=== PATIENT | male | born 1960 | race Caucasian/White ===

== ENCOUNTER 2016-09-06 18:34 | Emergency (ER) | payer OTHER, BC ==
[2016-09-06] MEDS ORDERED: OXYCODONE-ACETAMINOPHEN 5-325 MG TABLET PO ONE (18:47)
--- NOTE | 2016-09-06 18:47 | ER Document Report ---
ED Medical Screen (RME) - General Chief Complaint: Fall Stated Complaint: POSSIBLE ARM/SHOULDER INJURY Time seen by provider: 18:44 Mode of Arrival: Ambulatory Information source: Patient Notes: 56 yo male presents to ed for pain in right shoulder after falling landing on the shoulder. TRAVEL OUTSIDE OF THE [place] IN LAST 30 DAYS: No - HPI Onset: This evening - 1700 Onset/Duration: Sudden Quality of pain: Sharp, Throbbing Severity: Moderate Pain Level: 4 Associated Symptoms: Other - right shoulder pain Exacerbated by: Movement Relieved by: Denies Similar symptoms previously: No Recently seen / treated by doctor: No - Related Data Smoking: Non-smoker Frequency of alcohol use: None Drug Abuse: None Allergies/Adverse Reactions: No Known Allergies Allergy (Verified 09/06/16 18:44) Past Medical History - Past Medical History Cardiac Medical History: Reports: Hx Hypercholesterolemia, Hx Hypertension Pulmonary Medical History: Reports: Hx Asthma - as a child, Hx Sleep Apnea Renal/ Medical History: Reports: Hx Kidney Stones GI Medical History: Reports: Hx Diverticulitis Musculoskeltal Medical History: Reports Hx Arthritis, Reports Hx Fibromyalgia Psychiatric Medical History: Denies: Hx Depression Past Surgical History: Reports: Hx Adenoidectomy, Hx Appendectomy, Hx Tonsillectomy - Immunizations Immunizations up to date: Yes Hx Diphtheria, Pertussis, Tetanus Vaccination: Yes
--- NOTE | 2016-09-06 19:23 | ER Document Report ---
ED Extremity Problem, Upper - General Chief Complaint: Shoulder Pain Stated Complaint: POSSIBLE ARM/SHOULDER INJURY Time seen by provider: 19:18 Mode of Arrival: Ambulatory Notes: This is a 56-year-old male with a history of hypertension, fibromyalgia, sleep apnea, arthritis, and carpal tunnel in the right hand states that at 1700 this afternoon he tripped over an alignment machine while at work. He immediately stretch out his hand but could not brace his fall and fell on his right side. Denies hitting his head loss of consciousness nausea vomiting. He does not take any blood thinners. Denies wrist and elbow pain bilaterally. TRAVEL OUTSIDE OF THE [place] IN LAST 30 DAYS: No - Related Data Allergies/Adverse Reactions: No Known Allergies Allergy (Verified 09/06/16 18:44) Past Medical History - General Information source: Patient - Social History Smoking Status: Never Smoker Chew tobacco use (# tins/day): No Frequency of alcohol use: None Drug Abuse: None Family History: Reviewed & Not Pertinent Patient has suicidal ideation: No Patient has homicidal ideation: No - Past Medical History Cardiac Medical History: Reports: Hx Hypercholesterolemia, Hx Hypertension Pulmonary Medical History: Reports: Hx Asthma - as a child, Hx Sleep Apnea Renal/ Medical History: Reports: Hx Kidney Stones GI Medical History: Reports: Hx Diverticulitis Musculoskeltal Medical History: Reports Hx Arthritis, Reports Hx Fibromyalgia Psychiatric Medical History: Denies: Hx Depression Past Surgical History: Reports: Hx Adenoidectomy, Hx Appendectomy, Hx Tonsillectomy - Immunizations Immunizations up to date: Yes Hx Diphtheria, Pertussis, Tetanus Vaccination: Yes Review of Systems - Review of Systems Constitutional: denies: Chills, Fever EENT: No symptoms reported Cardiovascular: denies: Chest pain Respiratory: denies: Cough, Hurts to breathe Gastrointestinal: denies: Abdominal pain Genitourinary: No symptoms reported Male Genitourinary: No symptoms reported Musculoskeletal: denies: Joint pain Skin: No symptoms reported Hematologic/Lymphatic: No symptoms reported Neurological/Psychological: No symptoms reported Physical Exam - Vital signs Vitals: Temp Pulse Resp BP Pulse Ox 98.3 F 101 H 20 152/97 H 96 09/06/16 18:45 09/06/16 18:45 09/06/16 18:45 09/06/16 18:45 01/06/17 18:45 - General General appearance: Appears well In distress: None - HEENT Head: Normocephalic, Atraumatic Eyes: Normal Conjunctiva: Normal - Respiratory Respiratory status: No respiratory distress. No: Tachypnea Breath sounds: Normal. No: Rales, Rhonchi, Stridor, Wheezing - Cardiovascular Rhythm: Regular Heart sounds: Normal auscultation - Abdominal Inspection: Normal Distension: No distension Bowel sounds: Normal Tenderness: No: Tender - Extremities General upper extremity: Normal inspection - No gross deformity to the right shoulder. Admits to pain of the posterior and anterior mid right shoulder to point palpation. Denies radiation of pain. Unable to move the right shoulder in any direction due to pain significant guarding. Patient is able to extend elbow and move the right wrist in all directions. No snuffbox tenderness. Peripheral pulses +2 bilaterally radial. Capillary refill normal bilaterally. Normal sensation in all digits bilaterally. Normal sensation to palmar and dorsal side of hand bilaterally. Leadership Development Consultant strength in both hands are strong. Patient had normal sensation to upper and lower arm bilaterally., Nontender, Normal strength, Normal temperature General lower extremity: Normal inspection, Nontender, Normal strength, Normal temperature Shoulder: Normal Elbow: Normal Forearm: Normal Wrist: Normal Hand: Normal - Neurological Cognition: Normal. No: Confused Cranial nerves: Normal - Cranial nerves I through XII are intact. - Psychological Associated symptoms: Normal affect, Normal mood - Skin Skin Temperature: Warm Skin Moisture: Dry Skin Color: Normal Course - Re-evaluation Re-evalutation: 09/06/16 20:00 Radiographic images were shared with the patient. He was given multiple opportunities to ask questions. Patient stated that he had pain medication at home. He stated that he would follow up with orthopedist in the morning. He stated that he understood the discharge instructions. - Vital Signs Vital signs: Temp Pulse Resp BP Pulse Ox 97.5 F 99 20 145/83 H 95 09/06/16 20:05 09/06/16 20:05 09/06/16 20:05 09/06/16 20:05 09/06/16 20:05 Discharge - Discharge Clinical Impression: Right shoulder pain Qualifiers: Chronicity: acute Qualified Code(s): M25.511 - Pain in right shoulder Condition: Stable Disposition: HOME, SELF-CARE Additional Instructions: Return to the emergency department if symptoms worsen such as swollen shoulder, redness, drainage, or loss of sensation,etc. Follow-up with primary care physician and orthopedist as soon as possible. Sling to be Used You are to use a sling. This is to rest the area, and to prevent it from hanging downward. Use this sling for at least 48 hours (or longer if so instructed by the doctor). Some types of splints will break if not supported by the sling, so the sling must be used as long as the splint. Ice can be placed inside the sling over the injured area. Once you remove the sling, you should not encounter pain when you use the arm and hand. If you do feel pain beneath the cast or splint, you must continue use of the sling. Shoulder Injury You have injured your shoulder. This usually results from stretching or tearing of the tendons during trauma. Time and protection are required in order to heal properly. Many injuries are quite disabling, and should be taken seriously. Initial treatment includes cold packs and a sling to rest the shoulder. The physician has assessed the seriousness of your injury, and has outlined a treatment plan. Understand that this treatment may change, depending on how you progress. If a re-examination was recommended, it is important that you follow up as instructed. Some shoulder injuries (such as partial tear of the rotator cuff) are only suspected after you've failed to improve. Call us if there's severe pain, numbness, or loss of function. Referrals: [facility] [Provider Group] - Follow up as needed
--- NOTE | 2016-09-06 19:35 | ER Document Report ---
Doctor's Note Notes: 09/06/16 19:35 Patient independent seen and examined by myself. He reports a fall on outstretched right upper extremity has no complaints now except for pain which localizes to the area of the anterior humeral head on the right lateral portion of the clavicle. Patient is in a sling applied in triage. Wrist elbow forearm are nontender. Humerus is nontender to palpation. Pain localizes to the right acromioclavicular joint but no bruising or swelling is identified in this area. No bony deformities palpated. Radial median and ulnar nerve function right hand is intact. X-rays show no fracture dislocation
[2016-09-06 20:06] VITALS: BP 145/83
== END 2016-09-06 20:10 | disposition home or self-care (01) ==
LOC: ER 18:34
DX: M25.511 Pain in right shoulder (principal); I10 Essential (primary) hypertension; W01.0XXA Fall on same level from slipping, tripping and stumbling without subsequent striking against object, initial encounter; Y99.0 Civilian activity done for income or pay
CPT/HCPCS: 99283

== ENCOUNTER 2016-11-24 12:02 | Emergency (ER) | payer SELFPAY ==
[2016-11-24] MEDS ORDERED: OXYCODONE-ACETAMINOPHEN 5-325 MG TABLET PO ONE (12:06)
[2016-11-24] MEDS ORDERED: ONDANSETRON 4 MG TAB.RAPDIS PO ONE (12:06)
--- NOTE | 2016-11-24 12:10 | ER Document Report ---
ED Medical Screen (RME) - General Stated Complaint: LEFT SIDE FLANK PAIN Mode of Arrival: Ambulatory Information source: Patient Notes: Pt presents to the ED with c/o left sided low back pain for the last couple days.. Denies f/n/v, denies urinary/bowel incontinence,retention. Denies numbness tingling. Patient reports history of diverticulitis kidney stones. Patient also reports history of fibromyalgia. Patient is under pain management took 10 mg of Percocet before arrival. Reports no relief from pain. 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 I have greeted and performed a rapid initial assessment of this patient. A comprehensive ED assessment and evaluation of the patient, analysis of test results and completion of the medical decision making process will be conducted by additional ED providers. TRAVEL OUTSIDE OF THE [place] IN LAST 30 DAYS: No - Related Data Allergies/Adverse Reactions: No Known Allergies Allergy (Verified 11/24/16 12:07) Past Medical History - Past Medical History Cardiac Medical History: Reports: Hx Hypercholesterolemia, Hx Hypertension Pulmonary Medical History: Reports: Hx Asthma - as a child, Hx Sleep Apnea Renal/ Medical History: Reports: Hx Kidney Stones GI Medical History: Reports: Hx Diverticulitis Musculoskeltal Medical History: Reports Hx Arthritis, Reports Hx Fibromyalgia Psychiatric Medical History: Denies: Hx Depression Past Surgical History: Reports: Hx Adenoidectomy, Hx Appendectomy, Hx Tonsillectomy - Immunizations Immunizations up to date: Yes Hx Diphtheria, Pertussis, Tetanus Vaccination: Yes
[2016-11-24 12:34] LABS: ABSOLUTE BASOPHILS # (AUTO) 0.1 10^3/uL (0.0-0.2); ABSOLUTE EOSINOPHILS # (AUTO) 0.3 10^3/uL (0.0-0.6); ABSOLUTE LYMPHOCYTES (AUTO) 2.2 10^3/uL (0.5-4.7); ABSOLUTE MONOCYTES (AUTO) 0.5 10^3/uL (0.1-1.4); BASOPHILS % (AUTO) 0.8 % (0-2); EOSINOPHILS % (AUTO) 3.3 % (0-6); HEMATOCRIT 42.1 % (37.9-51.0); HEMOGLOBIN 14.4 g/dL (13.5-17.0); HGB HCT DIFFERENCE 1.1; LYMPHOCYTES % (AUTO) 24.6 % (13-45); MEAN CORPUSCULAR HGB CONC 34.2 g/dL (32.0-36.0); MEAN CORPUSCULAR VOLUME 88 fl (80-97); MONOCYTES % (AUTO) 5.8 % (3-13); RED BLOOD COUNT 4.79 10^6/uL (4.35-5.55); RED CELL DISTRIBUTION WIDTH 12.6 % (11.5-14.0); SEGMENTED NEUTROPHILS % (AUTO) 65.5 % (42-78); WHITE BLOOD COUNT 9.1 10^3/uL (4.0-10.5)
[2016-11-24 12:44] LABS: APPEARANCE,URINE SLIGHTLY-CLOUDY; BILIRUBIN,URINE NEGATIVE (NEGATIVE); GLUCOSE, URINE NEGATIVE (NEGATIVE); KETONES,URINE NEGATIVE (NEGATIVE); LEUKOCYTE ESTERASE,URINE SMALL (NEGATIVE); NITRITE,URINE NEGATIVE (NEGATIVE); PROTEIN,URINE NEGATIVE (NEGATIVE); URINE SPECIFIC GRAVITY 1.016; UROBILINOGEN,URINE NEGATIVE mg/dL (<2.0)
[2016-11-24 12:47] LABS: ALANINE AMINOTRANSFERASE 32 U/L (21-72); ALKALINE PHOSPHATASE 62 U/L (38-126); ANION GAP 13 (5-19); ASPARTATE AMINO TRANSFERASE 20 U/L (17-59); BILIRUBIN,DIRECT 0.2 mg/dL (0.0-0.4); BILIRUBIN,TOTAL 0.8 mg/dL (0.2-1.3); BLOOD UREA NITROGEN 11 mg/dL (7-20); CALCIUM 9.4 mg/dL (8.4-10.2); CARBON DIOXIDE 27 mmol/L (22-30); CHLORIDE 103 mmol/L (98-107); CREATININE RESULT 0.91 mg/dL (0.52-1.25); GLUCOSE 119 mg/dL (75-110); LIPASE 172.2 U/L (23-300); POTASSIUM 4.2 mmol/L (3.6-5.0); SODIUM 142.8 mmol/L (137-145); TOTAL PROTEIN 7.1 g/dL (6.3-8.2)
[2016-11-24] MEDS ORDERED: ONDANSETRON HCL INJ/PF 4 MG/2 ML SDV IV ONE (14:26)
[2016-11-24] MEDS ORDERED: MORPHINE SULFATE 10 MG/ML INJ IV PRN ×2 (14:26→14:27)
[2016-11-24] MEDS ORDERED: NORMAL SALINE 1000 ML 1,000 ML IV PRN (14:27)
[2016-11-24] MEDS ORDERED: MORPHINE SULFATE 10 MG/ML INJ ONE (14:28)
[2016-11-24] MEDS ORDERED: ONDANSETRON HCL INJ/PF 4 MG/2 ML SDV ONE (14:28)
--- NOTE | 2016-11-24 14:30 | ER Document Report ---
ED General - General Chief Complaint: Flank Pain Stated Complaint: LEFT SIDE FLANK PAIN Time seen by provider: 14:28 Mode of Arrival: Ambulatory Information source: Patient Notes: This is a 56-year-old man with a history of kidney stones, fibromyalgia, arthritis, hypertension and dyslipidemia. The patient presents to the emergency room with left CVA tenderness for the past 2 days. Patient denies any fever. He denies any blood in the urine. He denies any dysuria. He does state that the pain is similar to previous kidney stones. TRAVEL OUTSIDE OF THE [place] IN LAST 30 DAYS: No - HPI Onset: Just prior to arrival Onset/Duration: Gradual Quality of pain: Dull Severity: None Pain Level: Denies Associated symptoms: denies: Chills, Fever Exacerbated by: Movement Relieved by: Denies Similar symptoms previously: Yes Recently seen / treated by doctor: Yes - Related Data Allergies/Adverse Reactions: No Known Allergies Allergy (Verified 11/24/16 12:07) Past Medical History - General Information source: Patient - Social History Smoking Status: Never Smoker Cigarette use (# per day): No Chew tobacco use (# tins/day): No Frequency of alcohol use: None Drug Abuse: None Lives with: Family Family History: Reviewed & Not Pertinent Patient has suicidal ideation: No Patient has homicidal ideation: No - Past Medical History Cardiac Medical History: Reports: Hx Hypercholesterolemia, Hx Hypertension Pulmonary Medical History: Reports: Hx Asthma - as a child, Hx Sleep Apnea Renal/ Medical History: Reports: Hx Kidney Stones. Denies: Hx Peritoneal Dialysis GI Medical History: Reports: Hx Diverticulitis Musculoskeltal Medical History: Reports Hx Arthritis, Reports Hx Fibromyalgia Psychiatric Medical History: Denies: Hx Depression Past Surgical History: Reports: Hx Adenoidectomy, Hx Appendectomy, Hx Tonsillectomy - Immunizations Immunizations up to date: Yes Hx Diphtheria, Pertussis, Tetanus Vaccination: Yes Review of Systems - Review of Systems Constitutional: denies: Chills, Fever EENT: No symptoms reported Cardiovascular: No symptoms reported Respiratory: No symptoms reported Gastrointestinal: See HPI Genitourinary: No symptoms reported Male Genitourinary: No symptoms reported Musculoskeletal: No symptoms reported Skin: No symptoms reported Hematologic/Lymphatic: No symptoms reported Neurological/Psychological: No symptoms reported Physical Exam - Vital signs Vitals: Temp Pulse Resp BP Pulse Ox 98.2 F 115 H 20 123/90 H 96 11/24/16 12:07 11/24/16 12:07 11/24/16 12:07 11/24/16 12:07 11/24/16 12:07 Notes: Physical exam: GENERAL: 56-year-old man, alert and oriented 3, appears in significant distress. HEAD: Atraumatic, normocephalic. EYES: Pupils equal round and reactive to light, extraocular movements intact, sclera anicteric, conjunctiva are normal. ENT: TMs normal, nares patent, oropharynx clear without exudates. Moist mucous membranes. NECK: Normal range of motion, supple without lymphadenopathy or JVD. LUNGS: Breath sounds clear to auscultation bilaterally and equal. No wheezes rales or rhonchi. HEART: Regular rate and rhythm without murmurs, rubs or gallops. ABDOMEN: Soft, normoactive bowel sounds. No tenderness to palpation. Back: Patient does have left CVA tenderness to palpation. EXTREMITIES: Normal range of motion, no pitting or edema. No clubbing or cyanosis. NEUROLOGICAL: Cranial nerves II through XII grossly intact. Normal speech, normal gait. PSYCH: Normal mood, normal affect. SKIN: Warm, Dry, normal turgor, no rashes or lesions noted. Course - Re-evaluation Re-evalutation: 11/24/16 23:55 Note: Patient treated with IV fluids, IV pain medicine. He is feeling better. CT shows no evidence of obstructive uropathy. - Vital Signs Vital signs: Temp Pulse Resp BP Pulse Ox 98.2 F 93 20 125/83 93 11/24/16 12:07 11/24/16 16:55 11/24/16 16:55 11/24/16 16:55 11/24/16 16:55 - Laboratory Result Diagrams: 11/24/16 12:10 11/24/16 12:10 Laboratory results interpreted by me: 11/24/16 11/24/16 12:10 12:15 Glucose 119 H Urine Blood SMALL H Ur Leukocyte Esterase SMALL H Discharge - Discharge Clinical Impression: flank pain Condition: Stable Disposition: HOME, SELF-CARE Instructions: Kidney Stone ([facility]) Additional Instructions: Review of today's tests: Your white blood count was normal. Her chemistries were normal as well. The CAT scan showed that she do have kidney stones within the kidney. These usually do not cause pain unless it kidney slips into the ureter. We don't see any significant stones in the ureter, the CAT scan can miss a small stone. On the CAT scan, we do see some diverticulosis but it does not appear to be infected. At this point, given her symptoms, it appears that she might have a small stone in the ureter which is not being picked up by CAT scan. The urine test did show some red blood cells (which is what you would see with a kidney stone) and some white blood cells. While we do not see any bacteria in the blood, he will be given an antibiotic because of the white blood cells just in case. I would call the orthopedic surgeon in the morning and tell the office that he will placed on an antibiotic for possible urine infection in the setting of a kidney stone. Tell them you had a CAT scan and it did not show any significant obstruction. In any event, the treatment would be the same: Drink plenty of fluids, take pain medicines as needed. Take the mobic it as prescribed. Follow-up with a urologist. Return to the emergency room for worsening pain, fever or any concerns he getting worse. I did write a prescription for Zofran for nausea just in case she needed. Prescriptions: Ondansetron HCl [Zofran 4 mg Tablet] 1 - 2 tab PO Q4H PRN #10 tablet PRN Reason: Referrals: TIM SCHNEIDER MD [Primary Care Provider] - Follow up in 3-5 days
[2016-11-24] MEDS ORDERED: HYDROMORPHONE HCL INJ/PF 2 MG/ML AMPULE IV ONE (16:11)
[2016-11-24 16:56] VITALS: BP 125/83
== END 2016-11-24 17:55 | disposition home or self-care (01) ==
LOC: ER 12:02
DX: R10.9 Unspecified abdominal pain (principal); I10 Essential (primary) hypertension; Z87.442 Personal history of urinary calculi; Z90.49 Acquired absence of other specified parts of digestive tract
CPT/HCPCS: 96376; 99284; 96361; 96374; 96375; 36415; 83690; 85025; 80053; 81001; 76380; J2270; J1170; J2405; J7030

== ENCOUNTER → 2016-12-06 | Outpatient (CLI) | payer BC | LOC: OD 11:32 | PROVIDERS: ATTEND Internal Medicine | DX: R09.1 Pleurisy (principal) | CPT/HCPCS: 71020 ==